=== PATIENT | male | born 1995 | race Two or more races ===

== ENCOUNTER 2018-05-30 20:20 | Emergency (ER) | payer OTHER ==
[~2018-05-30] VITALS: Ht 182.9 cm; Wt 99.8 kg
[2018-05-30] MEDS ORDERED: KETO10TA2 PO (23:04)
[2018-05-30] MEDS ORDERED: ORPHENADRINE C100 MG PO (23:04)
== END 2018-05-30 23:49 | disposition home or self-care (01) ==
LOC: ER 20:20
DX: S39.011A Strain of muscle, fascia and tendon of abdomen, initial encounter (principal); I86.1 Scrotal varices; N43.2 Other hydrocele; X50.0XXA Overexertion from strenuous movement or load, initial encounter; Y93.B9 Activity, other involving muscle strengthening exercises; Y92.39 Other specified sports and athletic area as the place of occurrence of the external cause; Y99.8 Other external cause status

== ENCOUNTER 2018-06-05 07:10 | Outpatient (CLI) | payer OTHER ==
[~2018-06-05 07:10] MED LIST: KETO10TA2 PO; ORPHENADRINE C100 MG PO
== END 2018-06-05 07:30 | disposition home or self-care (01) ==
LOC: TOM 07:10
DX: Q53.112 Unilateral inguinal testis (principal)

== ENCOUNTER → 2018-12-04 | Day surgery (SDC) | payer OTHER | END | disposition home or self-care (01) | LOC: ADM 11-30 09:30 → CIR.AMB 05:40 | DX: I86.1 Scrotal varices (principal) ==